=== PATIENT | male | born 1985 | race Caucasian/White ===

== ENCOUNTER 2020-09-01 13:06 | Emergency (ER) | payer MEDICAID, SELFPAY ==
[2020-09-01 13:32] VITALS: BP 155/85; PULSE 72; RESP 16; TEMP 36.6; O2SAT 98; BMI 38.0
== END 2020-09-01 17:58 | disposition left against medical advice (07) ==
PROVIDERS: Emergency Provider Emergency Medicine; PCP Nurse Practitioner Primary Care
DX: K13.79 Other lesions of oral mucosa (principal); H57.9 Unspecified disorder of eye and adnexa
CPT/HCPCS: 99281; 99282